=== PATIENT | female | born 1990 | race Caucasian/White ===

== ENCOUNTER → 2016-10-18 | Outpatient (CLI) | payer OTHER ==
[2015-02-18 03:28] VITALS: BP 152/83
[~2016-10-18] MED LIST: FLUO10CA13 PO; LIDOCAINE 1%/EPI 1:100,000 50 ML, SODIUM BICARBONATE VIAL 5 MEQ in IV NORMAL SALINE 100... SQ ONE; PROG100C7 PO; ZOLP10TA PO
--- NOTE | 2016-10-18 15:17 | CARD ---
APPROVED REPORT Patient StatusOUT-PATIENT [facility] Operator: Aren Mathew Procedure(s) performed: Endovenous radiofrequency ablation of the left greater saphenous vein. INDICATION FOR PROCEDURE The indication(s) include : Symptomatic Chronic Venous Insufficiency with Varicose Veins, lower extre mity pain and edema. PROCEDURE NARRATIVE The patient was transferred to the procedure suite and the insufficient saphenous vein was mapped by ultrasound and diagrammed on the underlying skin. The depth and diameter of the vein(s) to be treate d was documented. The varicose tributary veins and suitable access sites were identified and mapped as well. The patient was then positioned supine on the procedure table. The entire limb was sterile ly prepared and the lower extremity and treatment table were sterilely draped. The RF catheter was placed on the sterile field, flushed and wiped down, prepared, and connected by a sterile cable. The patient was placed in reverse-Trendelenburg position and local anesthesia was instilled in the sk in overlying the access site. A skin incision was made overlying the identified and mapped greater s aphenous vein entry site. The vein was punctured through the incision and using ultrasound guidance and the Seldinger technique a guide wire was introduced through the needle which was then exchanged o gonzalo the guide wire for a 7 F sheath. The guide wire was removed and the sheath was flushed. The RF probe was placed into the vein through the sheath and positioned at a point just distal (about 0.5 to 1 cm) to the entrance point of the superficial epigastric artery using ultrasound guidance. After the RF probe position was verified by the ultrasound, tumescent anesthesia was infiltrated, und er ultrasound guidance, precisely into the perivenuus compartment along the entire length of vein fro m the entry site to the saphenofemoral junction until a "halo" of fluid was noted around the vein. The patient was then placed in Trendelenburg position. After the RF probe position was again confirm ed with ultrasound imaging, moderate external compression was applied over the RF heating element, an d RF energy was applied. The probe was withdrawn sequentially in 6.5 cm steps with slight overlap of 7 cm segments of ablation and monitored to keep the probe temperature at 120 degrees Celsius and the generator output well below its maximum power. Treatment Segments: 7 Total Length: 39 cm. Tota l Ablation time: 2 minutes 20 seconds. Repeat ultrasound of the saphenous vein was performed confirming successful treatment. The catheter and sheath were withdrawn and hemostasis established with direct pressure. After assuring hemostasis , the skin incision over the saphenous vein was closed with a bandage and an external compression donna ssing was applied from the level of the foot to the most proximal level of the thigh.
== END | disposition home or self-care (01) ==
LOC: VNUS 12:25
PROVIDERS: ATTEND Internal Medicine Cardiovascular Disease
DX: I83.892 Varicose veins of left lower extremity with other complications (principal)
CPT/HCPCS: 36475; J3490; J7030

== ENCOUNTER → 2016-10-19 | Outpatient (CLI) | payer OTHER ==
[2015-02-18 03:28] VITALS: BP 152/83
[~2016-10-19] MED LIST changes: -LIDOCAINE 1%/EPI 1:100,000 50 ML, SODIUM BICARBONATE VIAL 5 MEQ in IV NORMAL SALINE 100... SQ ONE
--- NOTE | 2016-10-19 12:35 | RAD ---
APPROVED REPORT Left Lower Extremity Venous Study for DVT Patient Location: OUT-PATIENT Indications f/u lt gsv ablation Vein Imaging (Left) CFV (L): Compressible SFJ (L): Compressible FEM (L): Compressible POP (L): Compressible DFV (L): Spontaneous PTV (L): Spontaneous GSV (L): Absent Flow Peroneals (L): Spontaneous Doppler Evaluation (Left) CFV (L):Spontaneous POP (L):Spontaneous Findings Shaver scale images of the left lower extremity deep veins and great saphenous vein was performed. The great saphenous vein is noncompressible and has no flow consistent with recent ablation. The left common femoral, superficial femoral and profunda femoral veins are not well visualized on gr ay scale images but appear to be fairly compressible. The flow patterns are normal limits with spectr al waveforms demonstrating good flow. The popliteal vein is fully compressible in the below-knee vein s demonstrate spontaneous flow. Critical Notification Critical Value: No <Conclusion> No evidence of deep venous thrombosis on the left side. Successful left great saphenous vein ablation.
== END | disposition home or self-care (01) ==
LOC: US 12:33
PROVIDERS: ATTEND Internal Medicine Cardiovascular Disease
DX: I82.812 Embolism and thrombosis of superficial veins of left lower extremity (principal)
CPT/HCPCS: 93971

== ENCOUNTER → 2017-06-13 | Outpatient (CLI) | payer OTHER ==
[2015-02-18 03:28] VITALS: BP 152/83
[~2017-06-13] MED LIST changes: +PROG100C15 PO; -PROG100C7 PO
[2017-06-13 07:55] LABS: BASO # 0.1 x10^3/uL (0.0-0.2); BASO % 1 % (0-3); EOS % 2 % (0-3); HEMATOCRIT 41.5 % (36.0-47.0); HEMOGLOBIN 13.2 g/dL (12.0-15.5); LYMPH # 3.3 x10^3/uL (1.0-4.8); LYMPH % 37 % (24-48); MEAN CORPUSCULAR HEMOGLOBIN 25 pg (25-35); MEAN CORPUSCULAR HGB CONC 32 g/dL (31-37); MEAN CORPUSCULAR VOLUME 80 fL (79-100); MONO % 7 % (0-9); NEUT % 54 % (31-73); PLATELET COUNT 406 x10^3/uL (140-400); RED BLOOD COUNT 5.21 x10^6/uL (3.50-5.40); RED CELL DISTRIBUTION WIDTH 14.4 % (11.5-14.5); WHITE BLOOD COUNT 9.1 x10^3/uL (4.0-11.0)
[2017-06-13 08:21] LABS: ALBUMIN 3.6 g/dL (3.4-5.0); ALBUMIN/GLOBULIN RATIO 0.9 (1.0-1.7); CALCIUM 8.8 mg/dL (8.5-10.1); CREATININE 0.8 mg/dL (0.6-1.0); GFR 85.4; POTASSIUM 3.4 mmol/L (3.5-5.1); TOTAL BILIRUBIN 0.2 mg/dL (0.2-1.0); TOTAL PROTEIN 7.8 g/dL (6.4-8.2)
[2017-06-13 08:22] LABS: CHOLESTEROL/HDL RATIO 3.6
[2017-06-13 12:13] LABS: FSH 3.1 mIU/mL (.); LUTEINIZING HORMONE 1.6 mIU/mL (.); PROGESTERONE 2.9 ng/mL (.); PROLACTIN 17.6 ng/mL (4.8-23.3); TESTOSTERONE TOTAL 13 ng/dL (8-48)
[2017-06-13 13:18] LABS: PTH INTACT 42 pg/mL (15-65)
== END | disposition home or self-care (01) ==
LOC: LAB 07:20
PROVIDERS: ATTEND Internal Medicine
DX: E88.81 Metabolic syndrome and other insulin resistance (principal); E66.9 Obesity, unspecified
CPT/HCPCS: 36415; 80053; 80061; 82306; 82607; 83001; 83002; 83036; 83525; 83970; 84144; 84146; 84403; 84443; 85025

== ENCOUNTER → 2018-04-12 | Outpatient (CLI) | payer OTHER ==
[2015-02-18 03:28] VITALS: BP 152/83
[2018-04-12 16:13] LABS: BASO # 0.1 x10^3/uL (0.0-0.2); BASO % 1 % (0-3); EOS # 0.1 x10^3/uL (0.0-0.7); EOS % 1 % (0-3); HEMATOCRIT 42.4 % (36.0-47.0); HEMOGLOBIN 13.9 g/dL (12.0-15.5); LYMPH # 2.7 x10^3/uL (1.0-4.8); LYMPH % 35 % (24-48); MEAN CORPUSCULAR HEMOGLOBIN 26 pg (25-35); MEAN CORPUSCULAR HGB CONC 33 g/dL (31-37); MEAN CORPUSCULAR VOLUME 78 fL (79-100); MONO # 0.6 x10^3/uL (0.0-1.1); MONO % 8 % (0-9); NEUT # 4.4 x10^3uL (1.8-7.7); NEUT % 56 % (31-73); PLATELET COUNT 411 x10^3/uL (140-400); RED BLOOD COUNT 5.44 x10^6/uL (3.50-5.40); RED CELL DISTRIBUTION WIDTH 15.3 % (11.5-14.5); WHITE BLOOD COUNT 7.9 x10^3/uL (4.0-11.0)
[2018-04-12 17:46] LABS: ALBUMIN 3.7 g/dL (3.4-5.0); CALCIUM 8.8 mg/dL (8.5-10.1); CREATININE 0.9 mg/dL (0.6-1.0); POTASSIUM 3.3 mmol/L (3.5-5.1); TOTAL BILIRUBIN 0.3 mg/dL (0.2-1.0); TOTAL PROTEIN 7.5 g/dL (6.4-8.2)
[2018-04-12 17:47] LABS: CHOLESTEROL/HDL RATIO 3.8
[2018-04-12 17:52] LABS: FREE T4 1.17 ng/dL (0.76-1.46); THYROID STIM HORMONE (TSH) 1.853 uIU/mL (0.358-3.74)
[2018-04-13 03:16] LABS: HEMOGLOBIN A1C 5.3 % (4.8-5.6)
== END | disposition home or self-care (01) ==
LOC: LAB 15:38
PROVIDERS: ATTEND Family Medicine
DX: E88.81 Metabolic syndrome and other insulin resistance (principal); E55.9 Vitamin D deficiency, unspecified; E28.2 Polycystic ovarian syndrome; I10 Essential (primary) hypertension; R53.82 Chronic fatigue, unspecified; E66.9 Obesity, unspecified
CPT/HCPCS: 36415; 80053; 80061; 82306; 82607; 83036; 84439; 84443; 85025

== ENCOUNTER → 2018-04-25 | Outpatient (CLI) | payer OTHER ==
[2015-02-18 03:28] VITALS: BP 152/83
--- NOTE | 2018-05-03 09:15 | SLEEP ---
DATE OF STUDY: 04/25/2018 SLEEP STUDY: ATTENDING PHYSICIAN: Dr. Varghese. The patient is 27 years old who weighs 290 pounds with a BMI of 42. The patient's [place] score was 2. The patient underwent sleep study performed at [facility]. This was a diagnostic study. During the night study, the patient spent 436 minutes in bed and slept for 355 minutes with a sleep efficiency of 82%. Sleep latency was 31 minutes with a REM latency of 357 minutes. Overall, sleep architecture showed increased stage 1 sleep, which was 19% of the total sleep time, normal stage 2 sleep. Normal slow wave sleep and slightly reduced REM sleep, which was 13% of the total sleep time. The majority of the REM came towards the end of the night. EKG monitoring revealed normal sinus rhythm. Average heart rate was 79 beats per minute, no sustained arrhythmias were observed. PLMS were not seen. During the night study, the patient had 17 obstructive apneas, 3 mixed apneas, 1 central apnea and 31 hypopneas. The patient's apnea hypopnea index was 9 per hour, supine index 11 per hour with a REM index of 51 per hour. Nocturnal oximetry study revealed an average oxygen saturation of 96% with the lowest of 84%. 2.3% of the time oxygen saturations remained between 80% and 89%. Majority of the nocturnal hypoxia was seen during REM sleep. Due to low AHI, the patient did not meet the split night criteria for CPAP initiation. IMPRESSION: 1. Mild sleep apnea-hypopnea syndrome with worsening during REM sleep. Total AHI 9 per hour with a REM AHI of 51 per hour. 2. No clinically significant nocturnal hypoxia. 3. No clinically significant PLMS. RECOMMENDATIONS: 1. The patient has mild sleep apnea with worsening during REM sleep. If the patient is clinically symptomatic, then it should be treated with either a trial of oral appliance as recommended by the dentist versus a trial of CPAP titration. 2. Weight loss is strongly advised. 3. Avoid TIE MAN depressants. 4. Caution regarding driving until symptoms of sleep apnea resolve with the above recommendations. BALTAZAR WARD MD DR: SEAN/eric JOB#: [id number] / [id number] Louis Hernandez MD
== END | disposition home or self-care (01) ==
LOC: RT 18:37
PROVIDERS: ATTEND Family Medicine
DX: G47.33 Obstructive sleep apnea (adult) (pediatric) (principal)
CPT/HCPCS: 95810